=== PATIENT | female | born 1995 | race Caucasian/White ===

== ENCOUNTER 2017-09-30 17:26 | Emergency (ER) | payer BC ==
[~2017-09-30] VITALS: Ht 165.1 cm; Wt 72.7 kg
[~2017-09-30 17:26] MED LIST: AMOXICILLIN 50500 MG PO; ATIVAN 0.50.5 MG/TAB PO; BIRTH CONTROL PILLS; BIRTHCONTROL PATCH; PEPCID 20MG TAB20 MG PO
[2017-09-30 17:37] VITALS: BP 139/90; PULSE 98; TEMP 99.3
[2017-09-30] MEDS ORDERED: CILOXAN .3% EY2.5 ML OS (18:03)
[2017-09-30] MEDS ORDERED: TRI-SPRINTEC 281 TAB (18:05)
== END 2017-09-30 18:09 | disposition home or self-care (01) ==
LOC: COL.ER 17:26
DX: S05.02XA Injury of conjunctiva and corneal abrasion without foreign body, left eye, initial encounter (principal); F17.210 Nicotine dependence, cigarettes, uncomplicated; W55.03XA Scratched by cat, initial encounter